=== PATIENT | female | born 2005 | race Caucasian/White ===

== ENCOUNTER 2023-09-18 13:50 | Emergency (ER) | payer OTHER, SELFPAY ==
[2023-09-18 13:53] VITALS: BP 128/77; PULSE 100; RESP 19; TEMP 36.6; O2SAT 100; BMI 26.5
--- NOTE | 2023-09-18 13:53 | ED_ITS ---
HPI - General Adult General Chief complaint: General Medical Stated complaint: allergic reaction diff breathing Time Seen by Provider: 09/18/23 14:07 Source: patient and family (patient's mother) Mode of arrival: ambulatory Limitations: no limitations History of Present Illness HPI narrative: Patient is a 18 year old assigned female at with a history of ulcerative colitis presenting to the emergency department today with an allergic reaction. Patient states that she ate tuna for dinner last night and didn't have any problems, then today she had left over tuna and a bite of her boyfriends sesame based meal and broke out into a rash with an itchy feeling on her tongue and throat. Patient states that this has never happened before with tuna or sesame. Patient states that she follows with an package lift operator due to her allergies to other things. Patient denies any dizziness, lightheadedness, abdominal pain, nausea, vomiting, fever, chills, blurry vision, double vision, loss of vision, chest pain, difficulty breathing, shortness of breath, back pain, night sweats, pain with urination, increased urinary frequency, increased urinary urgency, blood in her urine or stool, syncope or a near syncopal episode, recent trauma or falls, bowel incontinence, bladder incontinence, bowel retention, bladder retention, or any other complaints at this time. Onset (ago): minute(s) Location: face, left, right, upper extremity and lower extremity Relieving factors: none Exacerbating factors: none Associated symptoms: rash Treatments prior to arrival: other (benadryl) Related Data Previous Rx's Medication Instructions Recorded epinephrine 0.3 mg/0.3 mL 0.3 mg (0.3 mL) IM Q4H PRN 09/18/23 injection, auto-injector (EpiPen anaphylaxis #2 ea 2-Gray) prednisone 20 mg tablet 20 mg PO DAILY 7 days #7 tabs 09/18/23 Allergies Allergy/AdvReac Type Severity Reaction Status Date / Time No Known Allergies Allergy Verified 09/18/23 13:51 Review of Systems Constitutional: Constitutional: Reports no additional constitutional complaints, Denies chills, Denies fever(s) and Denies night sweats Eyes: Eyes: Reports no additional eye complaints, Denies blurry vision, Denies change in vision, Denies diplopia, Denies eye discharge, Denies loss of vision and Denies eye pain ENT: Denies dizziness Comments: itchy tongue and throat Cardiovascular: Cardiovascular: Reports no additional cardiovascular complaints, Denies chest pain, Denies lightheadedness, Denies Loss of Consciousness and Denies dyspnea Respiratory: Respiratory: Reports no additional respiratory complaints and Denies dyspnea Gastrointestinal: Gastrointestinal: Reports no additional gastrointestinal complaints, Denies abdominal pain, Denies melena, Denies hematochezia, Denies change in bowel habits and Denies change in stool character Genitourinary: Genitourinary: Denies hematuria, Denies urinary frequency, Denies dysuria, Denies urinary incontinence, Denies urinary hesitancy and Denies urinary urgency Musculoskeletal: Musculoskeletal: Reports no additional musculoskeletal complaints, Denies numbness and Denies tingling Integumentary/Breasts: Skin/Breast: Reports rash Neurologic: Denies dizziness, Denies loss of vision, Denies numbness and Denies tingling Psychiatric: Psychiatric: Reports no additional psychiatric complaints Endocrine: Endocrine: Reports no additional endocrine complaints Hematologic/Lymphatic: Hematologic/Lymphatic: Reports no additional hematologic/lymphatic complaints Allergic/Immunologic: Allergic/Immunologic: Reports no additional allergic/immunologic complaints PMFSH Past Medical History Attestation statement: The following information was validated with the patient. (all information validated with the patient's mother) Source: old records reviewed, obtained from family (patient's mother provided additional history and confirmed the history provided by the patient.) and nursing notes reviewed Social History Social History Advance Directives: No Advance Directives Information Provided: No Physical Exam ED Vital Signs: Vital Signs - 24 hr 09/18/23 13:53 09/18/23 14:50 09/18/23 15:11 Temperature 98 F Pulse Rate 100 82 82 Respiratory Rate 19 Blood Pressure 128/77 128/77 00/00 L Pulse Oximetry 100 Oxygen Delivery Method Room Air BMI result Body Mass Index 26.5 Const General: cooperative, no acute distress, alert and awake Nutritional Appearance: well nourished Orientation/consciousness: patient oriented x3 Limitations: no limitations HENMT Head: Yes normal to inspection and Yes atraumatic Ears: hearing grossly normal bilaterally and external ears normal General nose exam: Normal external nose present, no nasal discharge noted and no epistaxis Face and sinus: Yes normal facial exam, No abrasion and No laceration Mouth: Normal oral and palatal mucosa present, no drooling and no muffled voice Eyes General: appearance normal, both eyes and all related structures Periorbital: periorbital findings normal Eyelids: Yes eyelids normal Conjunctivae: conjunctivae normal Pupils: Equal, round and reactive pupils present EOM: EOMs intact bilaterally Neck Neck: Yes normal visual inspection, Yes full ROM and Yes no lymphadenopathy Chest Chest palpation & inspection: normal inspection of the chest Resp Effort & Inspection: normal respiratory effort and able to speak in complete sentences GI Inspection: Yes normal to inspection Skin Other: erythematous type rash with urticaria to the chest, face, bilateral upper extremities, and bilateral lower extremities. Neuro General: patient oriented x3 and moves all extremities Cranial nerves: Yes Equal, round and reactive pupils present Cognition (Neuro): normal cognition Motor exam (neuro): 5/5 motor strength present throughout Sensory Exam: Normal double simultaneous stimulation for sensation Coordination: [id number] test normal Extrem General: Yes normal to inspection, Yes full ROM and Yes capillary refill normal Psych Appearance: grossly normal Mental Status: mental status grossly normal Affect: normal affect Attitude: cooperative Thought process: Normal thought process present Thought content: Normal thought content present Insight: Good insight present (Psych) Course Course Course Narrative: RME performed by Karyn Grubbs PA-C. Patient is a 18 year old assigned female at presenting to the emergency department with an allergic. Patient brought to the back. Medication ordered. Reevaluation(s) Reevaluation #1: Patient received first dose of IM Benadryl and Solu-Medrol approximately 10 minutes ago. Rash has improved, itchy feeling of tongue and throat has improved. Time: 14:05 Reevaluation #2: Red rash has returned to the patient's face and chest, patient's itchy feeling to tongue and throat as returned. Patient's pharynx has possible swelling but no voice change or difficulty breathing. Epinephrine ordered. Labs ordered. Time: 14:34 Reevaluation #3: Patient's symptoms initially improved after first epinephrine dose however, the patient's symptoms have now returned with erythematous face and chest and itchy feeling of the throat and tongue. Pharynx remains unchanged. Additional dose of epi ordered. Pepcid ordered. Time: 14:56 Additional Reevaluation(s): 1608: Patient's symptoms completely resolved. Patient and the patient's mother feel comfortable with discharge. Patient given strict return precautions. Medications Administered Discontinued Medications Generic Name Dose Route Start Last Admin Trade Name Arnold PRN Reason Stop Dose Admin Diphenhydramine HCl 50 mg 09/18/23 13:54 09/18/23 14:10 Diphenhydramine Hcl 50 Mg/Ml Vial IM 09/18/23 13:55 50 mg ONCE ONE Administration Epinephrine 0.2 mg 09/18/23 14:34 09/18/23 14:50 Epinephrine 1 Mg/Ml Vial IM 09/18/23 14:35 0.2 mg STAT STA Administration Epinephrine 0.2 mg 09/18/23 14:56 09/18/23 15:11 Epinephrine 1 Mg/Ml Vial SUBCUT 09/18/23 14:57 0.2 mg STAT STA Administration Methylprednisolone Sodium Succinate 60 mg 09/18/23 13:54 09/18/23 14:10 Methylprednisolone Sod Succ 125 Mg/2 Ml Vial IM 09/18/23 13:55 60 mg ONCE ONE Administration Medical Decision Making Medical Decision Making MDM Narrative: Patient is a 18 year old assigned female at with a history of ulcerative colitis presenting to the emergency department today with an allergic reaction. Patient's physical exam was as noted in the physical exam portion of this note and as noted in the course portion of this note. Patient's blood work was unremarkable. I explained my physical exam findings as well as all test results to the patient and the patient's mother. I answered all questions asked by the patient and the patient's mother. Please refer to the course portion of this note for details on the patient's time in the department. Patient received 2 doses of IM epinephrine, IM Denise-medrol, IV pepcid, and IM Benadryl which all eventually resolved the patient's symptoms. I stressed the importance of the patient taking her medication as prescribed. I stressed the importance of the patient following up with her primary care provider and her package lift operator as well as avoiding sesame and tuna until cleared by her package lift operator. I stressed the importance of the patient returning to the emergency department immediately if her symptoms were to worsen or if she were to develop any dizziness, shortness of breath, difficulty breathing, chest pain, blurry vision, loss of vision, nausea, vomiting, abdominal pain, fever, chills, back pain, or any other complaints. Patient and the patient's mother verbalized agreement and understanding with this treatment plan and discharge. Differential Diagnosis Differential Diagnoses: The differential diagnosis associated with the prese ntation includes Allergic reaction MAST syndrome Admission/Observation Consideration of admission/observation: Escalation of care including admission/observation considered Patient would have been admitted to the hospital had her work up had any findings where hospital admission was appropriate and her clinical presentation warranted hospital admission. Lab Data MDM Lab Attestation statement: I reviewed the patient's lab results. Independent Historian Clinical information obtained from an independent historian. History obtained from or confirmed by: Parent (patient's mother provided additional history and confirmed the history provided by the patient.) Critical Care Time Critical Care Time Critical Care Time: Yes Total Critical Care Time: 65 Attestation: I spent 65 minutes of Critical Care Time with this patient. This does not include time spent on separately reported billable procedures. Discharge Plan Discharge Clinical Impression: Allergic reaction Patient Disposition: Home, Self-Care Instructions: General Allergic Reaction (ED) Additional Instructions: Do NOT eat tuna or sesame items until cleared by your package lift operator. Follow up with your primary care provider and your package lift operator. Return to the emergency department immediately if your symptoms worsen or if you develop any dizziness, shortness of breath, difficulty breathing, chest pain, blurry vision, loss of vision, nausea, vomiting, abdominal pain, fever, chills, back pain, or any other complaints. Prescriptions: New epinephrine [EpiPen 2-Gray] 0.3 mg/0.3 mL auto-injector 0.3 mg IM Q4H PRN (Reason: anaphylaxis) Qty: 2 0RF prednisone 20 mg tablet 20 mg PO DAILY 7 Days Qty: 7 0RF Referrals: [facility] [place] Family Medicine [Provider Group] (Call to establish and follow up with a primary care provider. If you already have a primary care provider, please follow up with them.) [facility] [place] Primary CareAdriana [Provider Group] (Call to establish and follow up with a primary care provider. If you already have a primary care provider, please follow up with them.) [facility] [place] Primary CareFredrick [Provider Group] (Call to establish and follow up with a primary care provider. If you already have a primary care provider, please follow up with them.) Stand Alone Forms: Work/School Release Discharge Date/Time: 09/18/23 16:08 Print Language: Ukrainian
[2023-09-18] MEDS: methylPREDNISolone Sod Succ 125 MG/2 ML VIAL 60 MG IM (14:10)
[2023-09-18] MEDS: diphenhydrAMINE HCL 50 MG/ML VIAL IM (14:10)
[2023-09-18 14:50] VITALS: BP 128/77; PULSE 82
[2023-09-18] MEDS: EPINEPHrine 1 MG/ML VIAL 0.2 MG IM (14:50)
[2023-09-18 15:11] VITALS: BP 00/00; PULSE 82
[2023-09-18] MEDS: EPINEPHrine 1 MG/ML VIAL 0.2 MG SUBCUT (15:11)
== END 2023-09-18 16:08 | disposition home or self-care (01) ==
PROVIDERS: Emergency Provider Emergency Medicine
DX: L50.0 Allergic urticaria (principal); Z79.899 Other long term (current) drug therapy
CPT/HCPCS: 96372; 99281; 99284; J0171; J1200; J2930